=== PATIENT | female | born 1970 | race Caucasian/White ===

== ENCOUNTER 2022-07-30 16:17 | Emergency (ER) | payer MEDICAID, SELFPAY ==
[2022-07-30 16:20] VITALS: BP 215/98; PULSE 78; RESP 18; TEMP 36; O2SAT 99; BMI 30.5
--- NOTE | 2022-07-30 17:13 | EDS_ITS ---
HPI <SHAINA Day - Last Filed: 07/30/22 17:20> History of Present Illness Chief Complaint: Abscess Narrative Narrative: Patient is a 52-year-old Fe with history of hypertension who presents to the emergency department with 3 to 4 days of swelling to the roof of her mouth. Patient states that it is fluctuant, she is concerned she might have an abscess. She does have poor dentition and is currently trying to see a dentist. Patient also states the pain is rating to her left ear. She denies any fever chills, nausea or vomiting. She denies any neck pain or trismus. PFSH <SHAINA Day - Last Filed: 07/30/22 17:20> [facility] Medical History (Updated 07/30/22 @ 17:19 by SHAINA Day) Diabetes HTN (hypertension) Throat cancer Home Medications amoxicillin 500 mg capsule 500 mg PO Q8H #30 caps 07/30/22 [Rx Last Taken Unknown] Allergy/AdvReac Type Severity Reaction Status Date / Time No Known Allergies Allergy Verified 07/30/22 16:21 Surgical History (Updated 07/30/22 @ 16:27 by Pratibha Duarte) H/O knee surgery History of cholecystectomy History of dental surgery Previous section Social History Smoking Status: Current every day smoker tobacco type: e-cigarettes ROS <SHAINA Day - Last Filed: 07/30/22 17:20> ROS ED ROS Narrative Constitutional: Negative for fever, chills, weight loss, weakness Eyes: Negative for vision loss, vision change, double vision ENT: Negative for any sore throat, ear pain, congestion. Patient has pain to the roof of her mouth, left ear Cardiovascular: Negative for any chest pain, tightness, palpitations Respiratory: Negative for any cough, sputum production, hemoptysis, dyspnea, dyspnea on exertion, orthopnea Gastrointestinal: Negative for any abdominal pain, nausea, vomiting, diarrhea, constipation, blood in stool, blood in vomit : Negative for any urinary frequency, dysuria, retention, blood in urine Muscle skeletal: Negative for any muscle joint pain, stiffness, myalgias, arthralgias, neck pain, back pain Neurological: Negative for any headache, syncope, numbness or tingling, dizziness Skin: Negative for any rashes, lumps, itching, abrasions, lacerations Psychiatric: Negative for any depression, anxiety, stress, suicidal ideation, homicidal ideation Hematologic: Negative for any easy bruising, excessive bruising, easy bleeding Allergies: Negative for any eczema, hives, rash EXAM <SHAINA Day - Last Filed: 07/30/22 17:20> Physical Exam Narrative Exam Narrative: Vital signs reviewed. HEET: Head normocephalic atraumatic, TMs clear bilaterally left TM was clear. No acute otitis media. Posterior pharynx is clear, moist mucous membranes. Nares clear bilaterally. On the roof of the mouth, specifically the left side there is some fluctuance, concerning for an abscess. There is no drainage noted. There is no deep tissue infection. There is no trismus. No posterior pharynx swelling. Neck: Supple with no lymphadenopathy or tenderness. No signs of meningismus, negative jolt sign. Cardiac: Regular rate and rhythm no murmurs gallops or rubs, equal peripheral pulses bilaterally. Respiratory: Lungs clear to auscultation bilaterally. No chest tenderness. Abdomen: Soft, nontender, nondistended. No abdominal bruit or pulsatile masses. No hepatosplenomegaly Extremities: No peripheral edema, no signs of gross trauma or deformity. Active full range of motion of all extremities. Neuro: Cranial nerves II through XII intact, no focal neurological deficits. Skin: Clean dry and intact with no rash, purpura, petechiae, vesicles or pustules. Backs/flank: No CVA tenderness, no midline spinal tenderness, no deformity. Psych: Normal mood and affect. No SI, HI or acute psychosis. Const Vital Signs: 07/30/22 16:20 07/30/22 17:19 07/30/22 17:39 Temperature 96.8 F L Temperature Source Temporal Pulse Rate 78 Respiratory Rate 18 18 Blood Pressure 215/98 H 189/84 H Blood Pressure Mean 137 119 Pulse Ox 99 Oxygen Delivery Method Room Air Positive well nourished and well developed General Appearance ED: well developed <Dr. Ciro Ramirez MD - Last Filed: 07/30/22 18:13> Physical Exam Const Vital Signs: 07/30/22 16:20 07/30/22 17:19 07/30/22 17:39 Temperature 96.8 F L Temperature Source Temporal Pulse Rate 78 Respiratory Rate 18 18 Blood Pressure 215/98 H 189/84 H Blood Pressure Mean 137 119 Pulse Ox 99 Oxygen Delivery Method Room Air [facility] <SHAINA Day - Last Filed: 07/30/22 17:20> [facility] Treatment and Re-Evaluation :: Patient appears generally well, patient appears nontoxic, vital signs are stable. Patient presents to the emergency department with concern for an abscess to the roof of her mouth as well as left ear pain. Patient's physical lamination was negative for any sort of acute otitis media. However patient does have some fluctuance, concerning for abscess to the left upper palate. Patient has no trismus, there is no respiratory difficulty. Negative for any Ludwigs angina. I was able to anesthetize through for the mouth using some benzocaine spray. I was able to take an 18-gauge needle and aspirate 0.5 mL of yellow drainage. I was able put pressure on the area. The swelling did decrease. The patient felt better. The patient felt less pain and pressure in her head. The patient be placed on amoxicillin 5 mg 3 times a day. This will cover oral mabel. She will follow-up with her dentist this indicated. She is instructed return for any worsening symptoms. At this time, there is no evidence to suspect any tonsillitis, acute otitis media. All questions answered <Dr. Ciro Ramirez MD - Last Filed: 07/30/22 18:13> [facility] Treatment and Re-Evaluation Comments:: Seen and evaluated independently and in conjunction with nurse practitioner. Agree with notes above unless documented otherwise. Painful swollen area on the roof of the mouth near left maxillary canine. No fevers or chills or spontaneous discharge. On exam, not consistent with a small abscess on the hard palate near the affected tooth, there appears to be calcification in the socket, the patient states a tooth was removed there, recommend dental follow-up. Abscess was drained and patient placed on antibiotics. <Dr. Ciro Ramirez MD - Last Filed: 07/30/22 18:13> Other Procedures Procedure(s): Simple incision and drainage dental abscess hard palate, performed by nurse practitioner see the procedure note above, supervised by myself. Discharge Plan Triage Chief Complaint: Abscess ED Midlevel Provider: Ben Huynh ED Provider: Ciro Ramirez Dx/Rx/DC Orders Clinical Impression: Abscess of mouth, Dental caries Instructions: ED Abscess Antibiotic Treatment Only, ED Dental Cavity Prescriptions: New amoxicillin 500 mg capsule 500 mg PO Q8H Qty: 30 0RF Primary Care Provider: Care Physician,No Primary Referrals: Care Physician,No Primary [Primary Care Provider] - Activity Restrictions/Additional Instructions: Please follow-up with your dentist Disposition Disposition: Home, Self Care
[2022-07-30 17:19] VITALS: BP 189/84
[2022-07-30] MEDS: Benzocaine 20% Metered Spray 57 gm MUCOUS MEM (17:33)
[2022-07-30] MEDS: AMOXICILLIN 500 MG CAPSULE PO (17:33)
[2022-07-30 17:39] VITALS: RESP 18
== END 2022-07-30 18:16 | disposition home or self-care (01) ==
PROVIDERS: Emergency Provider Emergency Medicine; Visit Provider Emergency Medicine
DX: K12.2 Cellulitis and abscess of mouth (principal); E11.638 Type 2 diabetes mellitus with other oral complications; I10 Essential (primary) hypertension; F17.290 Nicotine dependence, other tobacco product, uncomplicated
CPT/HCPCS: 10060; 99282

== ENCOUNTER 2022-10-18 20:10 | Emergency (ER) | payer MEDICAID, SELFPAY ==
[2022-10-18 20:11] VITALS: BP 204/99; PULSE 75; RESP 16; TEMP 36.9; O2SAT 97; BMI 32.2
--- NOTE | 2022-10-18 20:30 | EX.ED.VIS.EY ---
HPI History of Present Illness Chief Complaint: Eye Problem Informant: patient Narrative Narrative: Patient states she started with redness of her upper eyelid on the left about 2 maybe 3 days ago. It is a little bit sore. But she states the eye itself does not hurt. It is never gotten red. She does not have discharge. No headache. No nausea vomiting she does use witch cassandra on her face but has never had this reaction and has the redness nowhere else except as above. She tried some eyedrops [id number] that did nothing. She has no known exposures other than a lot of dust from opening boxes at work. But only the left eyelid?upper is involved. Nothing seems to make it better or worse. [facility] Medical History Diabetes HTN (hypertension) Throat cancer Home Medications amoxicillin 500 mg capsule 500 mg PO Q8H #30 caps 07/30/22 [Rx Last Taken Unknown] amlodipine 10 mg tablet 10 mg PO DAILY 10/18/22 [History Last Taken Unknown] atorvastatin 40 mg tablet 40 mg PO DAILY 10/18/22 [History Last Taken Unknown] doxycycline monohydrate 100 mg capsule 100 mg PO BID #20 CAPSULES 10/18/22 [Rx Last Taken Unknown] erythromycin 5 mg/gram (0.5 %) eye ointment 1 applic LEFT EYE Q8H 7 days #3.5 grams 10/18/22 [Rx Last Taken Unknown] gabapentin 100 mg capsule mg 10/18/22 [History Last Taken Unknown] lisinopril 40 mg tablet 40 mg PO DAILY 10/18/22 [History Last Taken Unknown] Allergy/AdvReac Type Severity Reaction Status Date / Time No Known Allergies Allergy Verified 10/18/22 20:11 Surgical History H/O knee surgery History of cholecystectomy History of dental surgery Previous section Social History Smoking Status: Current every day smoker tobacco type: e-cigarettes ROS ROS ED Constitutional Constitutional ED: Denies chills, fever(s), subjective or sweats Eyes Eyes: Reports other Details: See history of present illness. ; Denies blurry vision, change in vision or diplopia ENT ENT ED: Denies rhinorrhea Respiratory/Chest Respiratory/Chest: Denies cough Gastrointestinal Gastrointestinal: Denies nausea or vomiting Musculoskeletal Musculoskeletal: Denies myalgias or neck pain Integumentary Reports rash; Denies abscess or Abrasions Neurologic Neurologic: Denies headache(s), paresthesias or weakness Hematologic/Lymphatic Hematologic/Lymphatic: Denies easy bleeding, easy bruising or lymphadenopathy Allergic/Immunologic Allergic/Immunologic ED: Denies mouth swelling, tongue swelling or urticaria EXAM Physical Exam Narrative Exam Narrative: Patient is awake alert sitting comfortably in bed. No acute distress carries on normal conversation. HEENT other than the eye as described below is normal. No nasal drainage or purulent discharge. Sinuses are not tender. Negative Hills sign. No rash in the ear. Eyes: There is erythema and some mild swelling of the upper lid on the left. There does appear to be some swelling medially near the punctum. This makes me wonder if there is a blocked tear duct or possibly infected gland. I do not see a stye when I berhane the lid. The eye itself is perfectly white normal and not at all inflamed. Pupillary response is normal. Range of motion is normal and not painful. There is no proptosis. Neck shows no lymphadenopathy. Lungs are clear. Heart is regular. I see no rash anywhere else. There are no vesicles anywhere that I see. Const Vital Signs: 10/18/22 20:11 Temperature 98.5 F Temperature Source Temporal Pulse Rate 75 Respiratory Rate 16 Blood Pressure 204/99 H Blood Pressure Mean 134 Pulse Ox 97 MDM MDM MDM Narrative Medical decision making narrative: This presents like a left upper blepharitis. But I am concerned that there may be a little bit of tear gland and duct involvement. For this reason I will use oral antibiotics in addition to topical. We will give her ophthalmology follow-up. If she has any visual complaints pain nausea blurry vision pain with eye motion or any other concerns she should return. Discharge Plan Triage Chief Complaint: Eye Problem ED Provider: Patel Ramirez Dx/Rx/DC Orders Clinical Impression: Blepharitis of left upper eyelid, Dacryocystitis, left Instructions: ED Dacryocystitis Prescriptions: New doxycycline monohydrate 100 mg capsule 100 mg PO BID Qty: 20 0RF erythromycin 5 mg/gram (0.5 %) ointment 1 applic LEFT EYE Q8H 7 Days Qty: 3.5 0RF No Action amoxicillin 500 mg capsule 500 mg PO Q8H Qty: 30 0RF amlodipine 10 mg tablet 10 mg PO DAILY Patient Comments: take 1 tablet by mouth once daily atorvastatin 40 mg tablet 40 mg PO DAILY gabapentin 100 mg capsule lisinopril 40 mg tablet 40 mg PO DAILY Primary Care Provider: Care Physician,No Primary Referrals: Rogelio Lancaster MD [Med Staff - Active Staff] - 1-2 Days if not improving Care Physician,No Primary [Primary Care Provider] - Disposition Disposition: Home, Self Care
[2022-10-18] MEDS: Doxycycline 100 MG CAPSULE PO (20:50)
[2022-10-18 20:52] VITALS: PULSE 67; RESP 15; O2SAT 98
== END 2022-10-18 20:52 | disposition home or self-care (01) ==
PROVIDERS: Emergency Provider Emergency Medicine; Visit Provider Emergency Medicine
DX: H01.004 Unspecified blepharitis left upper eyelid (principal); E11.9 Type 2 diabetes mellitus without complications; I10 Essential (primary) hypertension; Z85.89 Personal history of malignant neoplasm of other organs and systems; Z79.899 Other long term (current) drug therapy; F17.290 Nicotine dependence, other tobacco product, uncomplicated; Z90.49 Acquired absence of other specified parts of digestive tract; H04.302 Unspecified dacryocystitis of left lacrimal passage
CPT/HCPCS: 99283